=== PATIENT | female | born 1995 | race Caucasian/White ===

== ENCOUNTER 2017-09-11 13:05 | Outpatient (CLI) | payer MEDICAID | END 2017-09-11 18:55 | disposition home or self-care (01) | LOC: OBT 13:05 → L-D 13:20 → OBT 18:55 | DX: O24.410 Gestational diabetes mellitus in pregnancy, diet controlled (principal); Z3A.36 36 weeks gestation of pregnancy | CPT/HCPCS: 76818 ==